=== PATIENT | male | born 1975 | race Caucasian/White ===

== ENCOUNTER 2018-03-02 15:28 | Emergency (ER) | payer OTHER ==
[~2018-03-02] VITALS: Ht 185.4 cm; Wt 190.5 kg
[~2018-03-02 15:28] MED LIST: MOTRIN800 MG PO; PEN-VEE K500 MG PO
[2018-03-02 16:29] LABS: BASO # 0.1 10*3/uL (0.0-0.1); BASO % 0.5 % (0.0-1.0); EOS # 0.2 10*3/uL (0.0-0.4); EOS % 1.7 % (1.0-4.0); HEMOGLOBIN 15.6 g/dl (14.0-18.0); LYMPH # 1.4 10*3/uL (1.3-4.4); LYMPH % 11.3 % (27.0-41.0); MEAN CELL VOLUME 93.3 fl (80.0-94.0); MEAN CORPUSCULAR HGB 31.6 pg (27.0-31.0); MEAN CORPUSCULAR HGB CONC 33.9 g/dl (33.0-37.0); MEAN PLATELET VOLUME 9.6 fl (9.6-12.3); MONO # 0.7 10*3/uL (0.1-1.0); MONO % 5.9 % (3.0-9.0); NEUT # 9.8 10*3/uL (2.3-7.9); NEUT % 80.1 % (47.0-73.0); PLATELET COUNT AUTOMATED 237 10*3/uL (130-400); RED BLOOD COUNT 4.93 10*6/uL (4.50-5.90); RED CELL DISTRI WIDTH 14.4 % (0-14.5); WHITE BLOOD COUNT 12.3 10*3/uL (4.8-10.8)
[2018-03-02 16:40] LABS: ACT PARTIAL THROMBO TIME 22.8 SECONDS (20.8-31.5)
[2018-03-02 16:43] LABS: ALBUMIN 2.9 gm/dl (3.1-4.5); ALKALINE PHOSPHATASE 91 U/L (45-117); BUN 12 mg/dl (7-24); CHLORIDE 94 mmol/L (98-107); CREATININE 0.97 mg/dL (0.70-1.30); LIPASE 216 U/L (73-393); POTASSIUM 4.5 mmol/L (3.5-5.1); SGOT/AST 10 IU/L (3-35); SGPT/ALT 22 U/L (12-78); SODIUM 134 mmol/L (136-145); TOTAL PROTEIN 7.4 gm/dL (6.4-8.2)
[2018-03-02] MEDS ORDERED: CEFADROXIL500 M1 PO (17:31)
[2018-03-02] MEDS ORDERED: SEPTDS PO (17:31)
[2018-03-03] MEDS ORDERED: GLUCOPHAGE500 M1 PO (14:27)
[2018-03-03] MEDS ORDERED: LISINOPRIL2.5 MG PO (16:06)
== END 2018-03-02 17:32 | disposition home or self-care (01) ==
LOC: ED 15:28
PROVIDERS: Physician Assistant
DX: L02.214 Cutaneous abscess of groin (principal)

== ENCOUNTER 2018-03-03 14:17 | Inpatient (IN) | payer OTHER ==
[2018-03-03 14:17] VITALS: BP 131/76
[~2018-03-03 14:17] MED LIST changes: +CEFADROXIL500 M1 PO; +SEPTDS PO
[2018-03-03] MEDS ORDERED: GLUCOPHAGE500 M1 PO (14:27)
[2018-03-03 14:52] LABS: BASO # 0.1 10*3/uL (0.0-0.1); BASO % 0.7 % (0.0-1.0); EOS # 0.3 10*3/uL (0.0-0.4); EOS % 2.6 % (1.0-4.0); HEMATOCRIT 46.1 % (42.0-52.0); HEMOGLOBIN 15.4 g/dl (14.0-18.0); LYMPH # 1.5 10*3/uL (1.3-4.4); LYMPH % 15.7 % (27.0-41.0); MEAN CELL VOLUME 93.1 fl (80.0-94.0); MEAN CORPUSCULAR HGB 31.1 pg (27.0-31.0); MEAN CORPUSCULAR HGB CONC 33.4 g/dl (33.0-37.0); MEAN PLATELET VOLUME 9.5 fl (9.6-12.3); MONO # 0.6 10*3/uL (0.1-1.0); MONO % 5.8 % (3.0-9.0); NEUT # 7.4 10*3/uL (2.3-7.9); NEUT % 74.8 % (47.0-73.0); PLATELET COUNT AUTOMATED 248 10*3/uL (130-400); RED BLOOD COUNT 4.95 10*6/uL (4.50-5.90); RED CELL DISTRI WIDTH 14.5 % (0-14.5); WHITE BLOOD COUNT 9.8 10*3/uL (4.8-10.8)
[2018-03-03 15:14] LABS: ALBUMIN 2.8 gm/dl (3.1-4.5); ALKALINE PHOSPHATASE 84 U/L (45-117); BUN 14 mg/dl (7-24); CHLORIDE 93 mmol/L (98-107); CREATININE 0.96 mg/dL (0.70-1.30); POTASSIUM 4.2 mmol/L (3.5-5.1); SGOT/AST 7 IU/L (3-35); SGPT/ALT 21 U/L (12-78); SODIUM 132 mmol/L (136-145); TOTAL PROTEIN 7.3 gm/dL (6.4-8.2)
[2018-03-03 15:17] LABS: ACT PARTIAL THROMBO TIME 23.4 SECONDS (20.8-31.5)
--- NOTE | 2018-03-03 15:25 | NUR ---
VIKTOR PERDOMO NOTIFIED OF LACTIC ACID.
--- NOTE | 2018-03-03 15:30 | NUR ---
A 42, admitted to 5E, under the services of JULIO Miranda DO with a diagnosis of ABSCESS LEFT GROIN, CANDIDIASIS,CELLULITIS,HYPERGLYCEMIA. Chief complaint is ABSCESS LEFT GROIN. Patient arrived via bed from ER. Monitor applied. Initial assessment completed. Vital signs taken and recorded. JULIO MIRANDA DO notified of admission to the unit. Orders received. See assessment for past medical history, medications and allergies. Patient and/or family oriented to unit. [facility] visitation policy reviewed. Clothing/patient valuable form completed. KIET GARCIA
[2018-03-03 16:00] VITALS: BP 124/90
[2018-03-03] MEDS ORDERED: LISINOPRIL2.5 MG PO (16:06)
--- NOTE | 2018-03-03 17:19 | NUR ---
PT REFUSED NICOTINE PATCH.
[2018-03-03 20:00] VITALS: BP 119/68
--- NOTE | 2018-03-03 21:00 | NUR ---
PT REFUSES INSULIN COVERAGE FOR BLOOD SUGAR OF 274. 1:1 GIVEN, INEFFECTIVE. WILL CONTINUE TO MONITOR.
--- NOTE | 2018-03-03 22:00 | NUR ---
PT REFUSES NYSTATIN POWDER AT THIS TIME.
[2018-03-04] VITALS: BP 133/75
--- NOTE | 2018-03-04 00:20 | NUR ---
PT STATES THAT HE PLANS TO LEAVE [facility] ONCE HIS MIDNIGHT DOSE OF IV VANCOMYCIN IS COMPLETE. DR MOY NOTIFIED.
--- NOTE | 2018-03-04 02:43 | NUR ---
PT STATES THAT HE WILL STAY FOR ZOSYN IV ANTIBIOTIC AND THEN WISHES TO LEAVE AMA. NURSING PLANETARIUM TECHNICIAN AND PHYSICIAN AWARE.
--- NOTE | 2018-03-04 03:20 | NUR ---
PT COMPLETED 0200 DOSE OF ZOSYN AND REQUESTS TO LEAVE AMA AT THIS TIME. IV SITE DISCONTINUED, MULE PACKER OBTAINED. NURSING WASTE DISPOSAL PLANT OPERATOR AND PHYSICIAN NOTIFIED. PT SIGNS ALL APPROPRIATE PAPERWORK AND LEAVES FLOOR VIA ELEVATOR WITH BELONGINGS.
== END 2018-03-04 03:20 | disposition left against medical advice (07) | DRG 872 ==
LOC: ED 14:17 → EDHOLD 14:27 → 5E 15:01
PROVIDERS: Physician Assistant; ADMIT Internal Medicine
DX: A41.9 Sepsis, unspecified organism (principal); L02.214 Cutaneous abscess of groin; L03.90 Cellulitis, unspecified; Z68.43 Body mass index [BMI] 50.0-59.9, adult; B37.9 Candidiasis, unspecified; Z53.21 Procedure and treatment not carried out due to patient leaving prior to being seen by health care provider; E66.01 Morbid (severe) obesity due to excess calories; E11.65 Type 2 diabetes mellitus with hyperglycemia; I10 Essential (primary) hypertension; Z72.0 Tobacco use; Z79.899 Other long term (current) drug therapy; Z79.84 Long term (current) use of oral hypoglycemic drugs; Z71.6 Tobacco abuse counseling

== ENCOUNTER 2019-10-31 13:04 | Emergency (ER) | payer SELFPAY ==
[~2019-10-31] VITALS: Wt 136.1 kg
[~2019-10-31 13:04] MED LIST changes: +GLUCOPHAGE500 M1 PO; +LISINOPRIL2.5 MG PO
[2019-10-31 14:56] LABS: BASO # 0.1 10*3/uL (0.0-0.1); BASO % 0.3 % (0.0-1.0); EOS % 0.2 % (1.0-4.0); HEMATOCRIT 49.5 % (42.0-52.0); LYMPH # 1.2 10*3/uL (1.3-4.4); LYMPH % 7.1 % (27.0-41.0); MEAN CELL VOLUME 99.2 fl (80.0-94.0); MEAN CORPUSCULAR HGB 34.1 pg (27.0-31.0); MEAN CORPUSCULAR HGB CONC 34.3 g/dl (33.0-37.0); MEAN PLATELET VOLUME 9.2 fl (9.6-12.3); MONO # 1.1 10*3/uL (0.1-1.0); MONO % 6.3 % (3.0-9.0); NEUT # 14.7 10*3/uL (2.3-7.9); NEUT % 85.8 % (47.0-73.0); PLATELET COUNT AUTOMATED 245 10*3/uL (130-400); RED BLOOD COUNT 4.99 10*6/uL (4.50-5.90); RED CELL DISTRI WIDTH 13.8 % (0-14.5); WHITE BLOOD COUNT 17.2 10*3/uL (4.8-10.8)
[2019-10-31 15:13] LABS: ALBUMIN 3.3 gm/dl (3.1-4.5); ALKALINE PHOSPHATASE 94 U/L (45-117); BUN 10 mg/dl (7-24); CHLORIDE 101 mmol/L (98-107); CREATININE 0.88 mg/dL (0.70-1.30); SGOT/AST 13 IU/L (3-35); SGPT/ALT 19 U/L (12-78); SODIUM 135 mmol/L (136-145); TOTAL PROTEIN 7.9 gm/dL (6.4-8.2)
== END 2019-10-31 21:07 | disposition short-term general hospital (02) ==
LOC: ED 13:04
PROVIDERS: Physician Assistant
DX: T81.40XA Infection following a procedure, unspecified, initial encounter (principal); R65.20 Severe sepsis without septic shock; Y92.89 Other specified places as the place of occurrence of the external cause